=== PATIENT | male | born 1950 | race Hispanic/Latino ===

== ENCOUNTER → 2023-10-11 | Outpatient (CLI) | payer OTHER ==
[~2023-10-11] MED LIST: ASPI-556 PO; CLOP-31 PO; GLIP5TAB15 PO; IOHEXOL-350 75 ML VIAL IV ONE; LEVO-70 PO; METF-444 PO; METO-391 PO; OMEP20CA12 PO; ROSU10TA22 PO; [UNRECOGNIZED DRUG - OTHER] PO
== END | disposition home or self-care (01) ==
LOC: RAH 10:38
PROVIDERS: ATTEND Internal Medicine Cardiovascular Disease
DX: I73.9 Peripheral vascular disease, unspecified (principal)
CPT/HCPCS: 75635; Q9967